=== PATIENT | female | born 1995 ===

== ENCOUNTER 2018-12-26 17:46 | Emergency (ER) | payer SELFPAY ==
[2018-12-26 17:56] VITALS: BP 126/79; PULSE 102; RESP 16; TEMP 98; O2SAT 100
[2018-12-26] MEDS ORDERED: DiphenhydrAMINE 50 mg/ml Inj IM STA (18:17)
--- NOTE | 2018-12-26 18:21 | ED PDOC ---
HPI: Skin/Bite Injury Time Seen by Provider: 12/26/18 18:03 Chief Complaint (Nursing): Abnormal Skin Integrity Chief Complaint (Provider): Rash History Per: Patient History/Exam Limitations: no limitations Onset/Duration Of Symptoms: Days (x2), Worse Since (last night) Current Symptoms Are (Timing): Still Present Additional Complaint(s): 23 year old female presents to the ED for evaluation of an itchy, red rash to her entire torso. Patient states two days ago the rash started on her face and spread to her stomach, prompting her to go to a hospital in [place] where she was prescribed Benadryl, Prednisone, and Pepcid, which she has been taking since her discharge yesterday. She was also prescribed an Epi pen which she has not filled yet, and is in the process of scheduling a production tester appointment. While she notes the rash to her face is gone and the stomach rash initially improved, she reports that overnight the rash on her stomach worsened, the itch only transiently relieved by ice. Otherwise, denies mouth swelling, throat swelling, fever, recent travel, and shortness of breath. As far as new exposures, patient reports she just started using Dove body wash which she has never used before. LNMP: 12/05/18 PMD: [place] Past Medical History Reviewed: Historical Data, Nursing Documentation, Vital Signs Vital Signs: Last Vital Signs Temp 98 F 12/26/18 17:53 Pulse 102 H 12/26/18 17:53 Resp 16 12/26/18 17:53 BP 126/79 12/26/18 17:53 Pulse Ox 100 12/26/18 17:53 - Medical History PMH: No Chronic Diseases - Surgical History Surgical History: No Surg Hx - Family History Family History: States: Unknown Family Hx - Social History Current smoker - smoking cessation education provided: No Alcohol: None Drugs: Denies - Allergies Allergies/Adverse Reactions: Allergies Allergy/AdvReac Type Severity Reaction Status Date / Time No Known Allergies Allergy Verified 12/26/18 17:52 Review of Systems ROS Statement: Except As Marked, All Systems Reviewed And Found Negative Constitutional: Negative for: Fever ENT: Negative for: Mouth Swelling, Throat Swelling Respiratory: Negative for: Shortness of Breath Skin: Positive for: Rash (red, itchy patches to entire torso) Physical Exam - Reviewed Nursing Documentation Reviewed: Yes Vital Signs Reviewed: Yes - Physical Exam Comments: GENERAL APPEARANCE: Patient is awake, alert, oriented x 3, in no acute distress. SKIN: diffuse erythematous blanching wheals to front and back of torso, (-) vesicles (-) excoriations, (-) drainage, (-) crusting of lesions is present. No signs of infection. Rash spares the palms, soles, and face. HENT: (-) conjunctival injection, (-) chemosis. Oropharynx: clear (-) tongue or lip swelling, (-) tonsillar exudates, (-) erythema. Airway: patent (-) stridor, (-) hoarseness. Mucous membranes moist. Nares: Patent (-) rhinorrhea. NECK: (-) lymphadenopathy, (-) tenderness. CARDIOVASCULAR: Normal rate and rhythm. (-) murmur, (-) gallop. CHEST: (-) rales, (-) wheezing, (-) dyspnea, (-) stridor. Breath sounds equal bilaterally. ABDOMEN: Soft. (-) tenderness, (-) distention, (-) HSM. NEURO: Mental status: Patient is alert, oriented, and with normal strength and tone. - ECG O2 Sat by Pulse Oximetry: 100 (RA) Pulse Ox Interpretation: Normal Medical Decision Making Medical Decision Making: Initial Impression: rash, possible allergic reaction Time: 1816 Initial Plan: --Benadryl 25mg IM --Pepcid 20mg PO --Reevaluate 19;35 on re eval pt reports feeling better, no longer itching, rash is unchanged, no lip or tongue swelling, no difficulty breathing, pt has follow up with production tester in 3 days, discussed diagnosis, treatment, return precautions and f/u with pt who is understanding, in agreement and stable for dc Scribe Attestation: Documented by Mi Powell acting as a scribe for Waqar Welsh PA-C. Provider Scribe Attestation: All medical record entries made by the Scribe were at my direction and personally dictated by me. I have reviewed the chart and agree that the record accurately reflects my personal performance of the history, physical exam, medical decision making, and the department course for this patient. I have also personally directed, reviewed, and agree with the discharge instructions and disposition. Disposition - Clinical Impression Clinical Impression: Rash and nonspecific skin eruption, Dermatitis, atopic - Patient ED Disposition Is Patient to be Admitted: No Counseled Patient/Family Regarding: Studies Performed, Diagnosis, Need For Followup - Disposition Referrals: your, doctor/production tester [Other] Disposition: Routine/Home Disposition Time: 19:41 Condition: IMPROVED Additional Instructions: Thank you for letting us take care of you today. You were treated for a rash. Follow up with the production tester as prescribed. Continue medications as prescribed. Stop using new soap and laundry detergent. The emergency medical care you received today was directed at your acute symptoms. If you were prescribed any medication, please fill it and take as directed. It may take several days for your symptoms to resolve. Return to the Emergency Department if your symptoms worsen, do not improve, or if you have any other problems. Please contact your doctor in 2 days for re-evaluation and follow up / or call one of the physicians/clinics you have been referred to that are listed on the Patient Visit Information form that is included in your discharge packet. Bring any paperwork you were given at discharge with you along with any medications you are taking to your follow up visit. Our treatment cannot replace ongoing medical care by a primary care provider (PCP) outside of the emergency department. Instructions: Skin Rash, Eczema (Atopic Dermatitis) (DC) Forms: [employer] (Polish) Print Language: SYRIAC - POA Present On Arrival: None
[2018-12-26] MEDS ORDERED: DiphenhydrAMINE 50 mg/ml Inj ONE (18:26)
== END 2018-12-26 19:53 | disposition home or self-care (01) ==
LOC: H.ER 17:46
DX: L30.9 Dermatitis, unspecified (principal)
CPT/HCPCS: 96372; 99282; J1200